=== PATIENT | male | born 2000 ===

== ENCOUNTER 2023-05-11 00:26 | Emergency (ER) | payer OTHER ==
[2023-05-11] MEDS ORDERED: Ondansetron PF 4 MG/2 ML Vial ONE ×2 (01:24→02:00)
== END 2023-05-11 03:25 | disposition home or self-care (01) ==
LOC: ERS 00:26
DX: F10.129 Alcohol abuse with intoxication, unspecified (principal)
CPT/HCPCS: 96361; 96374; J2405